=== PATIENT | female | born 1980 | race Caucasian/White ===

== ENCOUNTER 2020-08-08 08:38 | Outpatient (CLI) | payer MEDICARE, SELFPAY ==
[2020-08-08 09:46] LABS: Hematocrit 41.2 % (37.0-47.0); Hemoglobin 13.8 g/dL (12.0-15.0); Mean Corpuscular HGB Conc 33.5 g/dl (32-36); Mean Corpuscular Hemoglobin 34.4 pg (26-34); Mean Corpuscular Volume 102.7 fl (80-100); Mean Platelet Volume 9.5 fl (7.4-10.4); Platelet Count Result 240 k/mm3 (150-375); Red Blood Count 4.01 M/mm3 (4.2-5.4); Red Cell Distribution Width 12.3 % (11.5-14.5); White Blood Count 9.8 K/mm3 (4.5-10.0)
[2020-08-08 10:01] LABS: CRP < 0.5 mg/dL (<1.0)
[2020-08-08 10:41] LABS: Erythrocyte Sedimentation Rate 16 mm/hr (0-20)
[2020-08-08 11:00] LABS: Vitamin D 25 Hydroxy 29.8 ng/mL
[2020-08-08 11:04] LABS: Folic Acid > 20.0 ng/mL (2.76->20)
[2020-08-11 22:09] LABS: Anti Nuclear Antibody Titer 1:40 (Negative)
== END 2020-08-08 08:39 | disposition home or self-care (01) ==
PROVIDERS: PCP Internal Medicine
DX: M21.6X2 Other acquired deformities of left foot (principal)
CPT/HCPCS: 36415; 82306; 82607; 82746; 85027; 85652; 86038; 86039; 86140